=== PATIENT | female | born 1950 | race Caucasian/White ===

== ENCOUNTER 2022-11-20 07:47 | Day surgery (SDC) | payer MEDICARE, OTHER ==
[~2022-11-20 07:47] MED LIST: Dexmedetomidine 200 MCG/2 ML SDV ONE; Lactated Ringers 1,000 ML IV SCH; Sodium Chloride 0.9% 10 ML Syringe FLUSH PRN; Sodium Chloride 0.9% 2.5 ML Syringe FLUSH PRN; Sodium Chloride 0.9% 20 ML SDV IV PRN; Water For Injection, Sterile 20 ML ONE; propofoL 50 ML ONE
[2022-11-20] MEDS ORDERED: ePHEDrine 50 MG/ML SDV ONE (09:02)
== END 2022-11-20 10:03 | disposition home or self-care (01) ==
LOC: MW.SDS 07:47
PROVIDERS: ATTEND Surgery
DX: Z12.11 Encounter for screening for malignant neoplasm of colon (principal); K62.5 Hemorrhage of anus and rectum; K62.0 Anal polyp; K64.1 Second degree hemorrhoids; M85.80 Other specified disorders of bone density and structure, unspecified site; Z79.899 Other long term (current) drug therapy; Z87.891 Personal history of nicotine dependence
CPT/HCPCS: 45380; J2704; J7120; 00811; 88305; 99100; J3490